=== PATIENT | female | born 1980 | race African-American/Black ===

== ENCOUNTER 2016-12-24 19:27 | Emergency (ER) | payer MEDICAID ==
[~2016-12-24] VITALS: Ht 157.5 cm; Wt 69.9 kg
[2016-12-24 19:29] VITALS: BP 131/86
--- NOTE | 2016-12-24 20:37 | NUR ---
Naveed beckham in [facility] - 12/24/16 at 2039 by CLARITA PT TAKEN TO BED 3
--- NOTE | 2016-12-24 20:39 | NUR ---
PT TAKEN TO OF3
--- NOTE | 2016-12-24 20:40 | NUR ---
PT BIB FAMILY C/O SEVERE HEADACHE SINCE THIS MORNING, NO TRAUMA NOR INJURY. Pupils equal and reactive to light bilaterally. No facial droop noted. No smile deficit noted. Speech normal for patient. Patient is alert and oriented to person, place, time and event. Bilateral hand cashier or checker stock clerk equal. Bilateral foot push equal.
--- NOTE | 2016-12-24 21:03 | NUR ---
Dr. Arnold evaluating patient
[2016-12-24] MEDS ORDERED: KETOROLAC 60 MG/2 ML VIAL IM ONE (21:05)
[2016-12-24 21:40] VITALS: BP 133/75
--- NOTE | 2016-12-24 22:35 | NUR ---
Patient discharged with v/s stable. Written and verbal after care instructions given and explained. Patient alert, oriented and verbalized understanding of instructions. Ambulatory with steady gait. All questions addressed prior to discharge. ID band removed. Patient advised to follow up with PMD. Rx of BENADRYL 25MG, COMPAZINE 10MG given. Patient educated on indication of medication including possible reaction and side effects. Opportunity to ask questions provided and answered.
== END 2016-12-24 22:35 | disposition home or self-care (01) ==
LOC: MED 19:27
DX: R51 Headache (principal); R11.2 Nausea with vomiting, unspecified; R03.0 Elevated blood-pressure reading, without diagnosis of hypertension; J45.909 Unspecified asthma, uncomplicated
CPT/HCPCS: 81002; 81025; 96372; 99283; J1885

== ENCOUNTER 2017-04-03 10:07 | Emergency (ER) | payer MEDICAID ==
[~2017-04-03] VITALS: Ht 157.5 cm; Wt 71.2 kg
[~2017-04-03 10:07] MED LIST: ALBU0.0912 IH
[2017-04-03 10:21] VITALS: BP 138/79
--- NOTE | 2017-04-03 10:25 | NUR ---
Patient to bed 06.
--- NOTE | 2017-04-03 10:26 | NUR ---
36/F BIB SEC/O PAINFUL URINATION 12/02.DENIES N/V/D; SKIN IS PINK/WARM/DRY; AAOX4 WITH EVEN AND STEADY GAIT; LUNGS CLEAR BL; PT DENIES ANY FEVER, CP, SOB, OR COUGH AT THIS TIME; PATIENT STATES PAIN OF 10 AT THIS TIME; PATIENT POSITIONED FOR COMFORT; HOB ELEVATED; BEDRAILS UP X2; BED DOWN. ER MD MADE AWARE OF PT STATUS.
--- NOTE | 2017-04-03 10:48 | NUR ---
Patient being evaluated by dr roth at bedside.
[2017-04-03 10:56] VITALS: BP 124/82
== END 2017-04-03 10:56 | disposition home or self-care (01) ==
LOC: MED 10:07
DX: N39.0 Urinary tract infection, site not specified (principal); R03.0 Elevated blood-pressure reading, without diagnosis of hypertension; J45.909 Unspecified asthma, uncomplicated
CPT/HCPCS: 81002; 81025; 99283

== ENCOUNTER 2017-06-30 22:37 | Emergency (ER) | payer MEDICAID ==
[~2017-06-30] VITALS: Ht 157.5 cm; Wt 73.5 kg
[2017-06-30 22:47] VITALS: BP 113/76
--- NOTE | 2017-06-30 22:50 | NUR ---
to lobby, amb, vss stable, a/w for bed, jeremy noted
--- NOTE | 2017-07-01 03:58 | NUR ---
PT AMBULATED TO ER OF2
[2017-07-01 04:05] VITALS: BP 113/76
--- NOTE | 2017-07-01 04:05 | NUR ---
aPATIENT PRESENTS TO ED WITH C/O BACK PAIN X 2 DAYS PT DENIES N/V/D; SKIN IS PINK/WARM/DRY; AAOX4 WITH EVEN AND STEADY GAIT; LUNGS CLEAR BL; HR EVEN AND REGULAR; PT DENIES ANY FEVER, CP, SOB, OR COUGH AT THIS TIME; PATIENT STATES PAIN OF 8/10 AT THIS TIME; VSS; PATIENT POSITIONED FOR COMFORT; HOB ELEVATED; BEDRAILS UP X2; BED DOWN. ER MD MADE AWARE OF PT STATUS.
--- NOTE | 2017-07-01 04:59 | NUR ---
PATIENT LEFT WITHOUT BEING SEEN BY DR. GOOD . NO FURTHER CARE PROVIDED FOR PATIENT.
== END 2017-07-01 04:59 | disposition left against medical advice (07) ==
LOC: MED 22:37
DX: M54.9 Dorsalgia, unspecified (principal); Z53.21 Procedure and treatment not carried out due to patient leaving prior to being seen by health care provider

== ENCOUNTER 2017-07-31 18:12 | Emergency (ER) | payer MEDICAID ==
[~2017-07-31] VITALS: Ht 157.5 cm; Wt 73.5 kg
[2017-07-31 19:11] VITALS: BP 137/65
--- NOTE | 2017-07-31 19:45 | NUR ---
ER MD MARTINI BY ER MD DR DEVLIN. IN CHAIR C
--- NOTE | 2017-07-31 19:46 | NUR ---
PT BIB FAMILY C/O LEFT ARM/NECK SHOULDER PAIN. PT STATES 8 WEEEKS , G4, P2. CAP RE-FILL-IMM, PT DENIES N/V/D; SKIN IS INTACT, PINK/WARM/DRY; AAOX4, PERRL, WITH EVEN AND STEADY GAIT; LUNGS CLEAR BL, BREATHING UNLABORED; HR EVEN AND REGULAR, BL PERIPHERAL PULSES PRESENT; BS ACTIVE X4, NO TENDERNESS TO PALPATION. PT DENIES ANY FEVER, CP, SOB, OR COUGH AT THIS TIME; PT STATES 4/10 PAIN AT THIS TIME; VSS; PATIENT POSITIONED FOR COMFORT; HOB ELEVATED; BEDRAILS UP X2; BED DOWN.
[2017-07-31 19:51] VITALS: BP 128/68
== END 2017-07-31 19:51 | disposition home or self-care (01) ==
LOC: MED 18:12
DX: O26.891 Other specified pregnancy related conditions, first trimester (principal); M43.6 Torticollis; J45.909 Unspecified asthma, uncomplicated
CPT/HCPCS: 81025; 99281

== ENCOUNTER 2017-08-03 12:20 | Emergency (ER) | payer MEDICAID ==
[~2017-08-03] VITALS: Ht 157.5 cm; Wt 70.0 kg
[2017-08-03 12:24] VITALS: BP 115/79
--- NOTE | 2017-08-03 12:28 | NUR ---
PT AMBULATED TO BED 10
--- NOTE | 2017-08-03 12:41 | NUR ---
PATIENT PRESENTS TO ED WITH C/O LEFT SHOULDER PAIN . PT STATES HER LEFT SHOULDER ACHES AND THE PAIN RADIATES DOWN TO HER LEFT ARM AND FEELS LIKE A TINGLING PULSATING PAIN WHEN TOUCHED . PATIENT DENIES ANY TRAUMA TO THE LEFT SHOULDER. DENIES N/V/D; SKIN IS PINK/WARM/DRY; AAOX4 WITH EVEN AND STEADY GAIT; LUNGS CLEAR BL; HR EVEN AND REGULAR; PT DENIES ANY FEVER, CP, SOB, OR COUGH AT THIS TIME; PATIENT STATES PAIN OF 9/10 AT THIS TIME; VSS; PATIENT POSITIONED FOR COMFORT; HOB ELEVATED; BEDRAILS UP X2; BED DOWN. ER MD MADE AWARE OF PT STATUS.
[2017-08-03] MEDS ORDERED: diphenhydrAMINE 50 MG/ML VIAL IM ONE (13:10)
[2017-08-03] MEDS ORDERED: THIAMINE 200 MG/2 ML VIAL IM ONE (13:10)
[2017-08-03 14:14] VITALS: BP 125/85
--- NOTE | 2017-08-03 14:14 | NUR ---
Patient discharged with v/s stable. Written and verbal after care instructions given and explained. Patient alert, oriented and verbalized understanding of instructions. Ambulatory with steady gait. All questions addressed prior to discharge. ID band removed. Patient advised to follow up with PMD. Rx of ZINGIBER AND BENADRYL given. Patient educated on indication of medication including possible reaction and side effects. Opportunity to ask questions provided and answered.
== END 2017-08-03 14:14 | disposition home or self-care (01) ==
LOC: MED 12:20
DX: O26.891 Other specified pregnancy related conditions, first trimester (principal); M43.6 Torticollis; J45.909 Unspecified asthma, uncomplicated; Z3A.08 8 weeks gestation of pregnancy
CPT/HCPCS: 96372; 99284; J1200; J3411

== ENCOUNTER 2017-12-03 19:50 | Observation (INO) | payer MEDICAID ==
[~2017-12-03] VITALS: Ht 157.5 cm; Wt 76.2 kg
[2017-12-03] MEDS ORDERED: FERR-252 PO (20:54)
[2017-12-03] MEDS ORDERED: PREN-380 PO (20:54)
[2017-12-03 21:00] VITALS: BP 114/61
== END 2017-12-03 22:10 | disposition home or self-care (01) ==
LOC: MLD 19:50
PROVIDERS: ADMIT Obstetrics & Gynecology; ATTEND Obstetrics & Gynecology
DX: O21.2 Late vomiting of pregnancy (principal); O26.892 Other specified pregnancy related conditions, second trimester; R10.9 Unspecified abdominal pain; Z3A.27 27 weeks gestation of pregnancy
CPT/HCPCS: G0378

== ENCOUNTER 2018-08-15 07:12 | Emergency (ER) | payer MEDICAID ==
[~2018-08-15] VITALS: Ht 157.5 cm; Wt 76.7 kg
[~2018-08-15 07:12] MED LIST changes: -ALBU0.0912 IH; +FERR-252 PO; +PREN-380 PO
[2018-08-15 07:31] VITALS: BP 134/89
--- NOTE | 2018-08-15 07:39 | NUR ---
PT AMBULATES TO BED 3
--- NOTE | 2018-08-15 07:40 | NUR ---
PATIENT PRESENTS TO THE ED WITH C/O CONGESTION, SOB, NON-PRODUCTIVE COUGH, NAUSEA, VOMITING, CHILLS X 2 DAYS. PT C/O GENERALIZED PAIN 10/10. LUNG SOUNDS ARE CLEAR. HX ASTHMA. BED LOWERED WITH SIDE RAILS UP.
--- NOTE | 2018-08-15 08:35 | NUR ---
PT BEING EVALUATED BY DR BAILEY
[2018-08-15] MEDS ORDERED: ALBUTEROL SULFATE/IPRATROPIU 3 ML SOL IH ONE (08:40)
[2018-08-15] MEDS ORDERED: hydrOXYzine HCL 25 MG TAB PO ONE (08:40)
[2018-08-15] MEDS ORDERED: prednisoLONE 15 MG/5 ML UDC PO ONE (08:40)
--- NOTE | 2018-08-15 08:54 | NUR ---
INFLUENZA SWAB COLLECTED AND SENT TO THE LAB
--- NOTE | 2018-08-15 08:59 | NUR ---
ORDERED BREATHING TREATMENT ADMINISTERED. PATIENT TOLERATED TX WELL, WILL CONTINUE TO MONITOR.
--- NOTE | 2018-08-15 09:45 | NUR ---
Patient discharged with v/s stable. Written and verbal after care instructions given and explained. Patient alert, oriented and verbalized understanding of instructions. Ambulatory with steady gait. All questions addressed prior to discharge. ID band removed. Patient advised to follow up with PMD. Rx of PROMETHAZINE, IBUPROFEN, ALBUTEROL AND TAMIFLU given. Patient educated on indication of medication including possible reaction and side effects. Opportunity to ask questions provided and answered.
[2018-08-15 09:52] VITALS: BP 140/85
== END 2018-08-15 09:45 | disposition home or self-care (01) ==
LOC: MED 07:12
DX: J10.1 Influenza due to other identified influenza virus with other respiratory manifestations (principal); J45.909 Unspecified asthma, uncomplicated; Z79.899 Other long term (current) drug therapy
CPT/HCPCS: 36415; 81002; 81025; 87804; 94640; 99283; J7510; J7620

== ENCOUNTER 2019-01-30 22:49 | Emergency (ER) | payer MEDICAID ==
[~2019-01-30] VITALS: Ht 157.5 cm; Wt 69.9 kg
[2019-01-30 22:52] VITALS: BP 131/96
--- NOTE | 2019-01-30 22:57 | NUR ---
Pt take to bed 12.
--- NOTE | 2019-01-30 23:15 | NUR ---
38/F presents to ED c/o tampon stuck inside her vagina since Sunday, x 5 days ago. Pt states "I just realized I never took it out." Pt also reports having a lot of vaginal discharge. Pt states "If I take off my underwear it's going to leak out." Pt c/o mild lower abdominal discomfort, 08/04.
[2019-01-30 23:21] VITALS: BP 131/96
--- NOTE | 2019-01-30 23:21 | NUR ---
Patient discharged with v/s stable. Written and verbal after care instructions given and explained. Patient alert, oriented and verbalized understanding of instructions. Ambulatory with steady gait. All questions addressed prior to discharge. ID band removed. Patient advised to follow up with PMD. Rx of Bactrim DS given. Patient educated on indication of medication including possible reaction and side effects. Opportunity to ask questions provided and answered.
== END 2019-01-30 23:21 | disposition home or self-care (01) ==
LOC: MED 22:49
DX: T19.2XXA Foreign body in vulva and vagina, initial encounter (principal); J45.909 Unspecified asthma, uncomplicated; Z79.899 Other long term (current) drug therapy; X58.XXXA Exposure to other specified factors, initial encounter; Y93.89 Activity, other specified; Y99.8 Other external cause status; Y92.89 Other specified places as the place of occurrence of the external cause
CPT/HCPCS: 99284

== ENCOUNTER 2019-07-18 18:29 | Emergency (ER) | payer MEDICAID ==
[~2019-07-18] VITALS: Ht 158.8 cm; Wt 72.6 kg
[2019-07-18 18:39] VITALS: BP 125/74
--- NOTE | 2019-07-18 19:00 | NUR ---
PATIENT AMBULATED TO CHAIR B.
--- NOTE | 2019-07-18 19:00 | NUR ---
38 Y/O FEMALE C/O SORE THROAT & PAIN WITH SWALLOWING, OBRIEN, BODY ACHES, CHILLS. BREATHING UNLABORED AND SYMMETRICAL. CLEAR BREATH SOUNDS THROUGHOUT 5/10 PAIN; GENERALIZED PAIN. ERMD MADE AWARE OF STATUS. HX- DENIES RX:DENIES NKDA
--- NOTE | 2019-07-18 19:17 | NUR ---
INFLUENZA A AND B SWAB COLLECTED AND TAKEN TO LAB.
[2019-07-18 20:40] VITALS: BP 121/74
--- NOTE | 2019-07-18 20:40 | NUR ---
Patient discharged with v/s stable. Written and verbal after care instructions given and explained. Patient alert, oriented and verbalized understanding of instructions. Ambulatory with steady gait. All questions addressed prior to discharge. ID band removed. Patient advised to follow up with PMD. Rx of IBUPROFEN; AMOXICILLIN; PROMETHAZINE given. Patient educated on indication of medication including possible reaction and side effects. Opportunity to ask questions provided and answered.
== END 2019-07-18 20:40 | disposition home or self-care (01) ==
LOC: MED 18:29
DX: J02.9 Acute pharyngitis, unspecified (principal); Z79.899 Other long term (current) drug therapy
CPT/HCPCS: 71045; 87804; 99283

== ENCOUNTER 2021-02-04 20:48 | Emergency (ER) | payer MEDICAID, OTHER ==
[~2021-02-04] VITALS: Ht 160 cm; Wt 78.0 kg
[2021-02-04 20:53] VITALS: BP 141/97
--- NOTE | 2021-02-04 20:58 | NUR ---
UNABLE TO ASSESS PULSE OX D/T LONG ACRYLIC NAILS. PT DENIES SOB. NO NOTED RESPIRATORY DISTRESS.
--- NOTE | 2021-02-04 20:59 | NUR ---
PT AMBULATED TO LOBBY.
--- NOTE | 2021-02-04 21:11 | NUR ---
ERMD ASSESSING PT IN TRIAGE ROOM.
[2021-02-04] MEDS ORDERED: FLUT0.0560 NS (21:37)
[2021-02-04] MEDS ORDERED: AMOX-1000 PO (21:37)
[2021-02-04] MEDS ORDERED: NAPR-54 PO (21:37)
--- NOTE | 2021-02-04 21:43 | NUR ---
Patient discharged with v/s stable. Written and verbal after care instructions given and explained. Patient alert, oriented and verbalized understanding of instructions. Ambulatory with steady gait. All questions addressed prior to discharge. ID band removed. Patient advised to follow up with PMD. Rx of AUGMENTIN, NAPROSYN AND FLUTICASONE PROPIONATE given. Patient educated on indication of medication including possible reaction and side effects. Opportunity to ask questions provided and answered.
== END 2021-02-04 21:43 | disposition home or self-care (01) ==
LOC: MED 20:48
DX: H66.91 Otitis media, unspecified, right ear (principal); R05 Cough; J45.909 Unspecified asthma, uncomplicated; Z79.899 Other long term (current) drug therapy
CPT/HCPCS: 99283

== ENCOUNTER 2021-03-14 00:13 | Emergency (ER) | payer OTHER ==
[~2021-03-14] VITALS: Ht 160 cm; Wt 80.3 kg
[~2021-03-14 00:13] MED LIST changes: +AMOX-1000 PO; +FLUT0.0560 NS; +NAPR-54 PO
[2021-03-14 00:16] VITALS: BP 151/78
--- NOTE | 2021-03-14 00:20 | NUR ---
PATIENT AMBUALTED TO BED 11 WITH STEADY GAIT.
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
--- NOTE | 2021-03-14 00:36 | NUR ---
Dr. Alvarenga examining patient.
[2021-03-14] MEDS ORDERED: ALUMINUM HYD/MAG/SIMETHICONE 30 ML UDC PO ONE (00:40)
[2021-03-14] MEDS ORDERED: PANTOPRAZOLE 40 MG TABEC PO ONE (00:40)
[2021-03-14] MEDS ORDERED: FAMOTIDINE 20 MG TAB PO ONE (00:40)
[2021-03-14 00:42] LABS: BASOPHILS # (AUTO) 0.1 K/uL (0.00-0.22); BASOPHILS % (AUTO) 1.3 % (0.0-2.0); EOSINOPHILS # (AUTO) 0.4 K/uL (0-0.4); EOSINOPHILS % (AUTO) 4.7 % (0.0-4.0); HEMATOCRIT 28.2 % (36-48); HEMOGLOBIN 8.5 g/dL (12.0-16.0); LYMPHOCYTES # (AUTO) 2.5 K/uL (2.5-16.5); LYMPHOCYTES % (AUTO) 30.4 % (20.5-51.1); MEAN CORPUSCULAR HEMOGLOBIN 19 pg (27-31); MEAN CORPUSCULAR HGB CONC 30 g/dL (33-37); MEAN CORPUSCULAR VOLUME 62.6 fL (80-94); MONOCYTES # (AUTO) 0.7 K/uL (0.8-1.0); NEUTROPHILS # (AUTO) 4.4 K/uL (1.8-7.7); NEUTROPHILS % (AUTO) 54.6 % (42.2-75.2); PLATELET COUNT (AUTO) 376 K/uL (140-450); RED CELL DISTRIBUTION WIDTH 20.7 % (11.6-13.7); WHITE BLOOD COUNT (AUTO) 8.1 K/uL (4.8-10.8)
[2021-03-14 01:03] LABS: ALBUMIN 3.4 g/dL (3.4-5.0); ANION GAP 14.1 (8-16); CREATININE 0.8 mg/dL (0.6-1.3); POTASSIUM 3.1 mmol/L (3.5-5.1); TOTAL BILIRUBIN 0.2 mg/dL (0.0-1.0)
[2021-03-14] MEDS ORDERED: FAMO-90 PO (01:16)
--- NOTE | 2021-03-14 01:40 | NUR ---
PATIENT REPORTS CHEST PAIN IMPROVEMENT TO 5/10. PATIENT DENIES ANY ONGOING HEAD OR JAW PAIN. PATIENT LAYING SUPINE IN BED LOCKED IN LOWEST POSITION W X1 SIDERAIL UP, PATIENT TALKING ON PHONE. BREATHING EVEN AND UNLABORED. PATIENT CONNECTED TO MONITOR W VSS. NAD NOTED, WILL CONTINUE TO MONITOR. PROVIDED PATIENT W BLANKET.
--- NOTE | 2021-03-14 02:30 | NUR ---
PATIENT APPEARS TO BE RESTING IN BED W EYES CLOSED, LAYING SUPINE, BLANKET ON. BED LOCKED IN LOWEST POSITION W X1 SIDERAIL UP. BREATHING EVEN AND UNLABORED. CONNECTED TO MONITOR W VSS. NAD NOTED, WILL CONTINUE TO MONITOR.
--- NOTE | 2021-03-14 02:55 | NUR ---
PATIENT AMBULATED TO BATHROOM W STEADY GAIT.
--- NOTE | 2021-03-14 03:00 | NUR ---
PATIENT REPORTS SHE FEELS BETTER DENIES ANY CHEST PAIN. REPORTS HEADACHE 5/10, REFUSING ANY PAIN MEDICATION AT THIS TIME.
[2021-03-14 03:45] VITALS: BP 135/85
== END 2021-03-14 03:45 | disposition home or self-care (01) ==
LOC: MED 00:13
DX: K21.9 Gastro-esophageal reflux disease without esophagitis (principal); R07.9 Chest pain, unspecified; J45.909 Unspecified asthma, uncomplicated; Z79.899 Other long term (current) drug therapy
CPT/HCPCS: 36415; 71045; 80053; 83690; 84484; 85025; 93005; 99285; Q0092

== ENCOUNTER 2022-01-04 09:31 | Emergency (ER) | payer MEDICAID, OTHER ==
[~2022-01-04] VITALS: Ht 157.5 cm; Wt 80.7 kg
[~2022-01-04 09:31] MED LIST changes: +FAMO-90 PO
[2022-01-04 09:44] VITALS: BP 134/80
--- NOTE | 2022-01-04 10:00 | NUR ---
PT IN LOBBY
--- NOTE | 2022-01-04 10:05 | NUR ---
DR VOGEL AT PT SIDE FOR FURTHER EVAL
--- NOTE | 2022-01-04 10:28 | NUR ---
LAB AT SIDE FOR BLOOD DRAW
--- NOTE | 2022-01-04 11:03 | NUR ---
41 Y/O FEMALE C/O OF SPOTTING X3DAYS AND LOWER ABD PAIN CRAMPING. STATES THAT HER MENSTRUATION IS SUPPOSED TO START ON 01/01/22 BUT ONLY SPOTTING IS NOTED. PT IS SEXUALLY ACTIVE, DOES NOT USE PROTECTION. DENIES ANY VAGINAL DISCHARGE/PAIN/ITCHING NKA PMH: ASTHMA
[2022-01-04 11:50] LABS: BASOPHILS # (AUTO) 0.1 K/uL (0.00-0.22); BASOPHILS % (AUTO) 0.9 % (0.0-2.0); EOSINOPHILS # (AUTO) 0.3 K/uL (0-0.4); EOSINOPHILS % (AUTO) 3.5 % (0.0-4.0); HEMATOCRIT 28.2 % (36-48); HEMOGLOBIN 8.4 g/dL (12.0-16.0); LYMPHOCYTES # (AUTO) 1.9 K/uL (2.5-16.5); LYMPHOCYTES % (AUTO) 25.7 % (20.5-51.1); MEAN CORPUSCULAR HEMOGLOBIN 18 pg (27-31); MEAN CORPUSCULAR HGB CONC 30 g/dL (33-37); MEAN CORPUSCULAR VOLUME 60.4 fL (80-94); MONOCYTES # (AUTO) 0.9 K/uL (0.8-1.0); MONOCYTES % (AUTO) 11.7 % (1.7-9.3); NEUTROPHILS # (AUTO) 4.4 K/uL (1.8-7.7); NEUTROPHILS % (AUTO) 58.2 % (42.2-75.2); PLATELET COUNT (AUTO) 405 K/uL (140-450); RED BLOOD CELL COUNT(AUTO) 4.67 MIL/uL (4.20-5.40); RED CELL DISTRIBUTION WIDTH 21.3 % (11.6-13.7); WHITE BLOOD COUNT (AUTO) 7.5 K/uL (4.8-10.8)
[2022-01-04] MEDS ORDERED: MEDR10TA PO (12:09)
[2022-01-04] MEDS ORDERED: FERR325E14 PO (12:16)
[2022-01-04] MEDS ORDERED: NAPR-1704 PO (12:16)
--- NOTE | 2022-01-04 12:20 | NUR ---
PT D/C BY DR VOGEL. Patient discharged with v/s stable. Written and verbal after care instructions ABOUT DYSFUNCTIONAL UTERINE BLEEDING given and explained. Patient alert, oriented and verbalized understanding of instructions. Ambulatory with steady gait. All questions addressed prior to discharge. ID band removed. Patient advised to follow up with PMD. Rx of FERROUS SULFATE, PROVERA, NAPROXEN given. Patient educated on indication of medication including possible reaction and side effects. Opportunity to ask questions provided and answered.
== END 2022-01-04 12:20 | disposition home or self-care (01) ==
LOC: MED 09:31
DX: N93.8 Other specified abnormal uterine and vaginal bleeding (principal); D64.9 Anemia, unspecified; J45.909 Unspecified asthma, uncomplicated; Z79.899 Other long term (current) drug therapy
CPT/HCPCS: 36415; 81002; 81025; 85025; 99283

== ENCOUNTER 2022-01-15 16:24 | Emergency (ER) | payer MEDICAID ==
[~2022-01-15] VITALS: Ht 157.5 cm; Wt 81.8 kg
[~2022-01-15 16:24] MED LIST changes: +FERR325E14 PO; +MEDR10TA PO; +NAPR-1704 PO
[2022-01-15 16:47] VITALS: BP 140/86
--- NOTE | 2022-01-15 17:26 | NUR ---
PT AMB TO BED 5
--- NOTE | 2022-01-15 17:30 | NUR ---
41YO FEMALE C/O VAGINAL BLEEDING X2 DAYS. PT REPORTS LIGHT BROWN SPOTTING AND GOING THROUGH 2 PADS A DAY , ALONG W/ CRAMPING 7/10 PELVIC PAIN. PT WAS SEEN FOR SIMILIAR PAIN ON THE AND D/C WITH NAPROXEN WHICH GIVES RELIEF. DENIES N/V/D OR FEVERS. DENIES CLOTS OR ODOR. PT NON TENDER OR DISTENDED TO TOUCH . PT AAOX4, NO VISIBLE DISTRESS, RESPIRATIONS EVEN AND UNLABORED. HX: FIBROIDS, ASTHMA NKA LMP November
[2022-01-15 17:49] LABS: BASOPHILS % (AUTO) 0.6 % (0.0-2.0); EOSINOPHILS # (AUTO) 0.3 K/uL (0-0.4); EOSINOPHILS % (AUTO) 4.3 % (0.0-4.0); HEMATOCRIT 28.8 % (36-48); HEMOGLOBIN 8.5 g/dL (12.0-16.0); LYMPHOCYTES # (AUTO) 2.2 K/uL (2.5-16.5); LYMPHOCYTES % (AUTO) 28.7 % (20.5-51.1); MEAN CORPUSCULAR HEMOGLOBIN 18 pg (27-31); MEAN CORPUSCULAR HGB CONC 30 g/dL (33-37); MEAN CORPUSCULAR VOLUME 59.5 fL (80-94); MONOCYTES # (AUTO) 0.8 K/uL (0.8-1.0); MONOCYTES % (AUTO) 10.9 % (1.7-9.3); NEUTROPHILS # (AUTO) 4.3 K/uL (1.8-7.7); NEUTROPHILS % (AUTO) 55.5 % (42.2-75.2); PLATELET COUNT (AUTO) 378 K/uL (140-450); RED BLOOD CELL COUNT(AUTO) 4.83 MIL/uL (4.20-5.40); RED CELL DISTRIBUTION WIDTH 21.2 % (11.6-13.7); WHITE BLOOD COUNT (AUTO) 7.7 K/uL (4.8-10.8)
[2022-01-15 18:06] LABS: PROTHROMBIN TIME 9.9 secs (10.8-13.4)
--- NOTE | 2022-01-15 19:30 | NUR ---
REPORT GIVEN TO JOSELIN LEWIS. TRANSFER OF CARE AT THIS TIME
[2022-01-15] MEDS ORDERED: MEDR10TA PO (19:39)
--- NOTE | 2022-01-15 19:45 | NUR ---
PATIETN SITTING IN BED. AAOX4 AND AMBULATORY. PER PATIENT SHE STATED THAT HER CRAMPING COMES AND GOES BUT IS NOT CURRENTLY IN PAIN.
[2022-01-15 20:30] VITALS: BP 142/83
--- NOTE | 2022-01-15 20:30 | NUR ---
Patient discharged with v/s stable. Written and verbal after care instructions given ON ABNORMAL UTERINE BLEEDING and explained. Patient alert, oriented and verbalized understanding of instructions. Ambulatory with steady gait. All questions addressed prior to discharge. ID band removed. Patient advised to follow up with PMD. Rx of MEDROXYPROGESTERONE ACETATE given.
== END 2022-01-15 20:30 | disposition home or self-care (01) ==
LOC: MED 16:24
DX: N93.8 Other specified abnormal uterine and vaginal bleeding (principal); J45.909 Unspecified asthma, uncomplicated; Z79.899 Other long term (current) drug therapy
CPT/HCPCS: 36415; 85025; 85610; 85730; 99283